=== PATIENT | female | born 1955 | race Caucasian/White ===

== ENCOUNTER → 2018-03-26 08:09 | Outpatient (REF) | payer OTHER, SELFPAY ==
[2018-03-26 13:06] LABS: HGB 14.5 g/dL (12.0-15.5); Mean Corpuscular Hemoglobin 30.3 pg (27.0-33.0); Mean Corpuscular Volume 92.1 fL (80-95); Mean Platelet Volume 12.3 fL (8.0-11.0); Platelet Count 215 x1000/uL (130-400); RBC 4.78 m/cumm (4.00-5.20); RBC Distribution Width 14.3 % (11.7-14.6); White Blood Cell Count 9.57 k/cumm (4.4-10.8)
[2018-03-26 13:20] LABS: ALT 54 U/L (12-78); AST 21 U/L (15-37); Albumin 4.3 g/dL (3.4-5.0); Alkaline Phosphatase 105 U/L (46-116); Anion Gap 10.7 mmol/L (3-11); BUN 14 mg/dL (7-18); Bilirubin, Total 0.6 mg/dL (0.2-1.0); CO2 27.3 mmol/L (21.0-32.0); CREATININE 0.89 mg/dL (0.55-1.02); Calcium 9.2 mg/dL (8.5-10.1); Chloride 103 mmol/L (98-107); Cholesterol 149 mg/dL (50-200); Glucose 198 mg/dL (70-100); HDL Cholesterol 35 mg/dL (40-60); LDL CHOLESTEROL 88 mg/dL (<100); Potassium 3.9 mmol/L (3.5-5.1); Sodium 141 mmol/L (136-145); Total Protein 7.4 g/dL (6.4-8.2); Triglyceride 225 mg/dL (30-150)
== END ==
LOC: NCHCN 08:09
PROVIDERS: Visit Provider Family Medicine
DX: Z00.00 Encounter for general adult medical examination without abnormal findings (principal); Z13.0 Encounter for screening for diseases of the blood and blood-forming organs and certain disorders involving the immune mechanism; Z13.228 Encounter for screening for other metabolic disorders; Z13.220 Encounter for screening for lipoid disorders
CPT/HCPCS: 80053; 80061; 83721; 85027

== ENCOUNTER 2018-05-11 00:23 | Outpatient (CLI) | payer OTHER, SELFPAY ==
--- NOTE | 2018-05-11 14:25 | DI.RAD_ITS ---
SYMPTOMS/DIAGNOSIS: SCREENING FOR OSTEOPOROSIS IN A POSTMENOPAUSAL WOMAN, Z78.0 , [facility], Z00.00 DEXA SCAN: The scanogram of the dorsal lumbar spine is unremarkable. For the left forearm, a T score of -1.2 and a Z score of 0.4 indicate osteopenia and an increased fracture risk. For the left hip, a T score of -0.8 and a Z score of 0.5 are consistent with osteopenia and an increased fracture risk. For the lumbar spine, a T score of 1.8 and a Z score of 0 are consistent with osteopenia and an increased fracture risk.
== END 2018-05-11 00:43 ==
PROVIDERS: PCP Family Medicine; Visit Provider Family Medicine
DX: Z78.0 Asymptomatic menopausal state; M85.88 Other specified disorders of bone density and structure, other site
CPT/HCPCS: 77080

== ENCOUNTER 2018-07-07 11:52 | Outpatient (REF) | payer OTHER, SELFPAY ==
[2018-07-07 22:31] LABS: TSH (W/Ref FT4) 1.34 uIU/mL (0.358-3.74)
== END 2018-07-07 12:12 ==
LOC: NCHCN 11:52
PROVIDERS: PCP Family Medicine; Visit Provider Nurse Practitioner
DX: E03.9 Hypothyroidism, unspecified (principal)
CPT/HCPCS: 84443

== ENCOUNTER 2018-08-10 01:51 | Outpatient (CLI) | payer OTHER, SELFPAY ==
--- NOTE | 2018-08-10 12:44 | DI.US_ITS ---
SYMPTOM/DIAGNOSIS: VAGINAL BLEEDING, POST MENOPAUSAL, N95.0 PELVIC ULTRASOUND: A transabdominal and transvaginal examination was carried out. The uterus is acoustically heterogeneous and the endometrium is thickened and heterogeneous. The uterus measures 8.9 cm. in length, 5.5 cm. in height and 8.1 cm. in width with an endometrial stripe thickness of 14 mm. In addition to the above, there are right and left fundal fibroids. The right fibroid measures 5.8 by 5.8 by 5.1 cm. The left fibroid measures 3.3 by 3.6 by 3.8 cm. Also the possibility of hydrosalpinx is raised on the left side. There is also non visualization of the left ovary. The right kidney measures 11.4 cm. The left kidney measures 10.4 cm. There is a left renal simple cyst measuring 4.3 by 3.4 by 4.2 cm. in the lateral mid portion of the left kidney. SUMMARY: Multiple fibroids are demonstrated. There is thickening and heterogeneity of endometrium and further evaluation of this patient with hysteroscopy is suggested.
== END 2018-08-10 02:11 ==
PROVIDERS: PCP Family Medicine; Visit Provider Nurse Practitioner Family
DX: N95.0 Postmenopausal bleeding (principal); D25.9 Leiomyoma of uterus, unspecified; R93.89 Abnormal findings on diagnostic imaging of other specified body structures
CPT/HCPCS: 76830; 76856

== ENCOUNTER 2018-08-20 09:59 | Outpatient (REF) | payer OTHER, SELFPAY ==
--- NOTE | 2018-08-20 09:20 | ENDOMET_PTH ---
PATIENT: Tonia Magallanes LOC: [facility] U#:[id number] AGE/SX: 63/F ROOM: RE08/20/[address]: Vishnu Sorensen MD : 1955 BED: DIS: 08/20/2018 SPEC #: [id number] RECD: 08/20/18 12:59 STATUS: MIGUELANGEL REQ #: [id number] DEBORAH: 08/20/18 09:[address]: Vishnu Sorensen DEPT: Surgical Specimen RECD BY: Flora Diallo ENTERED: 08/20/18 12:59 SP TYPE: Endomet OT DR: Josefina Nguyễn, DEBORAH Tissues: 1 - ENDOMETRIUM BX/COBYETTE Procedures: GROSS AND MICRO LEVEL 4 Comments: [id number]
== END 2018-08-20 10:19 ==
LOC: LBN 09:59
PROVIDERS: PCP Family Medicine; Visit Provider Obstetrics & Gynecology
DX: N93.8 Other specified abnormal uterine and vaginal bleeding (principal); N95.0 Postmenopausal bleeding; N85.8 Other specified noninflammatory disorders of uterus
CPT/HCPCS: 88305

== ENCOUNTER 2018-08-23 01:02 | Outpatient (CLI) | payer OTHER, SELFPAY ==
--- NOTE | 2018-08-23 08:23 | DI.MAMMO_ITS ---
SYMPTOM/DIAGNOSIS: SCREENING, Z12.31 MAMMOGRAMS: Mammograms were interpreted according to the usual protocol including computer analysis with CAD system, tomosynthesis and C view imaging. Comparison is made with exams from 4303-1165. The breasts are composed of heterogeneously dense fibroglandular tissue, breast density, Category C. There are multiple bilateral nodules and benign calcifications. No suspicious masses or suspicious microcalcifications are seen. There has been no significant change. IMPRESSION: Category 2C, negative mammogram with benign findings. Yearly screening mammography is recommended. MQSA ASSESSMENT OF FINDINGS: Negative with benign findings. Category 2. Patient will receive a letter notifying them of these results. Bi-RADS category C. The breasts are heterogeneously dense, which may obscure small masses.
== END 2018-08-23 01:22 ==
PROVIDERS: PCP Family Medicine; Visit Provider Nurse Practitioner Family
DX: Z12.31 Encounter for screening mammogram for malignant neoplasm of breast (principal)
CPT/HCPCS: 77063; 77067

== ENCOUNTER → 2018-09-06 09:20 | Outpatient (BNVA) | payer OTHER, SELFPAY | PROVIDERS: PCP Family Medicine; Referring Provider Family Medicine; Visit Provider Physical Therapy Assistant | DX: Z12.11 Encounter for screening for malignant neoplasm of colon (principal); Z86.010 Personal history of colon polyps; E11.9 Type 2 diabetes mellitus without complications; Z79.84 Long term (current) use of oral hypoglycemic drugs; I10 Essential (primary) hypertension ==

== ENCOUNTER 2018-09-21 10:11 | Outpatient (CLI) | payer OTHER, SELFPAY ==
[2018-09-21 11:09] LABS: HCT 45.3 % (36.0-46.0); Mean Corp. HGB Concentration 33.1 g/dL (32.0-36.0); Mean Corpuscular Hemoglobin 29.8 pg (27.0-33.0); Mean Corpuscular Volume 90.1 fL (80-95); Mean Platelet Volume 11.8 fL (8.0-11.0); Platelet Count 223 x1000/uL (130-400); RBC 5.03 m/cumm (4.00-5.20); RBC Distribution Width 15.1 % (11.7-14.6); White Blood Cell Count 10.24 k/cumm (4.4-10.8)
== END 2018-09-21 10:31 ==
PROVIDERS: PCP Family Medicine; Visit Provider Obstetrics & Gynecology
DX: N95.0 Postmenopausal bleeding (principal); Z01.818 Encounter for other preprocedural examination
CPT/HCPCS: 36415; 85027; 86850; 86900; 86901

== ENCOUNTER 2018-09-22 09:23 | Day surgery (SDC) | payer OTHER, SELFPAY ==
[2018-09-22] MEDS: Lactated Ringers 1,000 ML 125 ML IV (10:05)
--- NOTE | 2018-09-22 10:54 | ENDOMET_PTH ---
PATIENT: Tonia Magallanes LOC: [facility] U#:[id number] AGE/SX: 63/F ROOM: RE09/22/[address]: Vishnu Sorensen MD : 1955 BED: DIS: 09/22/2018 SPEC #: [id number] RECD: 09/22/18 12:58 STATUS: MIGUELANGEL REQ #: [id number] DEBORAH: 09/22/18 10:[address]: Vishnu Sorensen DEPT: Surgical Specimen RECD BY: Flora Diallo ENTERED: 09/22/18 12:59 SP TYPE: Endomet OTHR DR: Josefina Nguyễn Tissues: 1 - ENDOMETRIUM BX/CURRETTE 2 - ENDOMETRIUM BX/CURRETTE Procedures: GROSS AND MICRO LEVEL 4 Comments: [id number]
[2018-09-22 11:08] VITALS: BP 134/74; PULSE 79; RESP 15; TEMP 36.2; O2SAT 95
[2018-09-22 11:13] VITALS: BP 113/61; PULSE 84; RESP 19; TEMP 36.2; O2SAT 94
[2018-09-22 11:18] VITALS: BP 122/61; PULSE 77; RESP 13; TEMP 36.2; O2SAT 94
[2018-09-22 11:55] VITALS: BP 134/68; PULSE 86; RESP 16; TEMP 35.7; O2SAT 93
--- NOTE | 2018-09-22 12:10 | W.PM.DSUDISC ---
Discharge Plan Disposition Patient Disposition: HOME Condition: Good Discharge Details Reason For Visit: Postmenopausal bleeding Attending Provider: Vishnu Sorensen Primary Care Provider: Josefina Nguyễn Home Meds and New Rx's Prescriptions: New hydrocodone-acetaminophen [[place]] 7.5-325 mg tablet 1 tab PO Q6H Qty: 10 RF: 0 Continued Januvia 100 mg tablet 100 mg PO DAILY RF: 0 bisacodyl [Dulcolax (bisacodyl)] 5 mg tablet,delayed release (DR/EC) 5 mg PO ONCE Qty: 4 RF: 0 polyethylene glycol 3350 17 gram/dose powder 255 g PO ONCE Qty: 255 RF: 0 multivitamin [Daily Multi-Vitamin] 1 EACH tablet 1 ea PO DAILY RF: 0 metformin 500 MG tablet 1,000 mg PO BID RF: 0 lisinopril 20 MG tablet 20 mg PO DAILY RF: 0 chlorthalidone 25 MG tablet 25 mg PO DAILY RF: 0 levothyroxine 50 MCG tablet 50 mcg PO DAILY RF: 0 glimepiride 1 MG tablet 2 mg PO DAILY RF: 0 atorvastatin 40 MG tablet 40 mg PO DAILY RF: 0 Discharge Instructions Stand Alone Forms: [facility] Post Gynecology Surgery, Ernesto Olea (DSU) Activity:: Activity as Tolerated Diet:: As Tolerated DS: Diagnosis Discharge Diagnosis (1) Postmenopausal: Status: Acute
--- NOTE | 2018-09-22 14:54 | W.PM.OP ---
Date of service: 09/22/18 Time of Service: 14:54 Operative Note DATE OF PROCEDURE: 09/22/18 PRE-OP DIAGNOSIS: Post menopausal bleeding with thickened EM on ultrasound POST-OP DIAGNOSIS: same PROCEDURE: Hysteroscopy D&C SURGEON: Vishnu Sorensen ANESTHESIA: MAC ESTIMATED BLOOD LOSS: 0 PATHOLOGY: other (1. Endometrial polyps. 2. Endometrial curettings ) COMPLICATIONS: None Patient was transported to: PACU Patient's condition: stable Findings: 1. On hysteroscopic exam 5 - 6 polyps were noted within the endometrial cavity. The surrounding endometrium was atrophic in appearance. 2. G2 cystocele, G2-3 rectocele. Procedure Description: After adequate general anesthesia was obtained, the patient was placed in lithotomy position. The patient was prepped and draped in the usual sterile fashion. The bladder was straight cathed for approximately 10 cc of clear urine. A weighted speculum was placed in the vagina with good visualization of the cervix. The cervix was grasped on the anterior lip with a single toothed tenaculum. The 5mm 30 degree hysteroscope with NS distention media was passed through the cervix without need for dilatation. 5-6 polyps were noted throughout the endometrial cavity with the background endometrium appearing atrophic. The hysteroscope was removed and the endometrial cavity explored with polyp forceps. All polyps were able to be removed with the forceps. A second pass with the hysteroscope cofirmed this. A sharp curettage was performed and submitted as a separate specimen. All instrumentation was removed. No bleeding was noted at the tenaculum site. Instrument and sponge counts were correct at the conclusion of the procedure. The patient was extubated and transferred to PACU in stable condition.
== END 2018-09-22 12:08 | disposition home or self-care (01) ==
PROVIDERS: PCP Family Medicine; Visit Provider Obstetrics & Gynecology
PROC: 0UDB8ZZ Extraction of Endometrium, Via Natural or Artificial Opening Endoscopic (ICD-10-PCS; CPT 58558; principal; 2018-09-22 10:30)
DX: N95.0 Postmenopausal bleeding (principal); R93.89 Abnormal findings on diagnostic imaging of other specified body structures; N81.10 Cystocele, unspecified; N81.6 Rectocele; N84.0 Polyp of corpus uteri; N84.1 Polyp of cervix uteri; E11.9 Type 2 diabetes mellitus without complications; I10 Essential (primary) hypertension; F17.210 Nicotine dependence, cigarettes, uncomplicated
CPT/HCPCS: 58558; 88305; J1100; J2250; J2405; J3010

== ENCOUNTER 2018-09-27 08:58 | Day surgery (SDC) | payer OTHER, SELFPAY ==
--- NOTE | 2018-09-27 06:33 | W.COLOREPORT ---
Date of service: 09/27/18 Time of Service: 10:09 Colonoscopy Report Date of procedure: 09/27/18 Pre-op diagnosis general: Hx of polyps Post-op diagnosis procedure note: other (Diverticulosis/ multiple polyps) Procedure: Colonoscopy with polypectomy by cold forceps Surgeon: Lenore Springer Anesthesia proc note operative: MAC (David Gordon,ROSHAN/ ASA 2) Estimated blood loss (mL): 5 Pathology: other (Transverse colon polyp, sigmoid polyps, rectal polyps) Complications: None Disposition: same day Indications: Mrs. Magallanes is a pleasant 63 year old female who was seen in the office for a follow-up colonoscopy. She had a colonoscopy in 2016 where she was found to have 4 pre-malignant polyps. She had another colonoscopy in 2017 where she had 5 pre-malignant polyps removed. She is now back for another colonoscopy. Risks, benefits and complications have been reviewed. Complications include but are not limited to bleeding, pain, perforation, missed small lesion/polyp, sore throat, aspiration and adverse reaction to the medications. Questions were entertained and answered to their satisfaction and they wished to proceed. No guarantees were given or implied. Prep: Miralax/Dulcolax Procedure Start Time: 10:09 Procedure End Time: 11:15 Retraction Time: 28 minutes Findings: 1. Transverse colon polyp 2. Sigmoid polyps x 6 3. rectal polyps x6 4. mild sigmoid diverticulosis Procedure Description: After informed consent was obtained the patient was taken to the procedure room and placed in a left decubitous position. Monitors were applied and a time out was done. The patients name, date of , procedure, allergies to medications and metal in their body was reviewed. The patient was then sedated. Once sedated and comfortable a rectal exam was done. External exam was normal. Internal exam revealed a normal sphincter tone and no palpable masses. The scope was then introduced and retro-flexed. No internal hemorrhoids were identified. The scope was then advanced to the cecum with difficulty. The scope would not advance easily past the hepatic flexure. She was placed in a supine position which helped to get it to the ascending colon. A lot of pressure had to be applied to get the scope into the cecum. The TI and appendiceal orifice were identified. The prep was adequate. The scope was then slowly retracted over 28 minutes back into the rectum. Polyps were removed in the transverse colon, sigmoid colon (x6), and rectum (X6) with cold forceps. Most were sessile polyps. Mild diverticulosis was also noted in the sigmoid colon. The scope was removed and the patient was woken up and taken back to Same day surgery in stable condition. The patient tolerated the procedure well and there were no immediate complications. Follow up: The patient should follow up in 1-2 years unless they develop changes in bowel habits or other new gastrointestinal complaints.
--- NOTE | 2018-09-27 06:35 | PDOC.DSDIS_ITS ---
Discharge Plan Disposition Patient Disposition: HOME Condition: Good Discharge Details Reason For Visit: Hx of polyps Attending Provider: Lenore Springer Primary Care Provider: Josefina Nguyễn Home Meds and New Rx's Prescriptions: Continued Januvia 100 mg tablet 100 mg PO DAILY RF: 0 multivitamin [Daily Multi-Vitamin] 1 EACH tablet 1 ea PO DAILY RF: 0 metformin 500 MG tablet 1,000 mg PO BID RF: 0 lisinopril 20 MG tablet 20 mg PO DAILY RF: 0 chlorthalidone 25 MG tablet 25 mg PO DAILY RF: 0 levothyroxine 50 MCG tablet 50 mcg PO DAILY RF: 0 glimepiride 1 MG tablet 2 mg PO DAILY RF: 0 atorvastatin 40 MG tablet 40 mg PO DAILY RF: 0 hydrocodone-acetaminophen [[place]] 7.5-325 mg tablet 1 tab PO Q6H Qty: 10 RF: 0 Discontinued bisacodyl [Dulcolax (bisacodyl)] 5 mg tablet,delayed release (DR/EC) 5 mg PO ONCE Qty: 4 RF: 0 polyethylene glycol 3350 17 gram/dose powder 255 g PO ONCE Qty: 255 RF: 0 Discharge Instructions Instructions: Colonoscopy (DC), Diverticulosis (DC), Colorectal Polyps (DC) Additional Instructions: Findings: multiple polyps, mild diverticulosis Follow up:depends on final pathology Please call if you develop: fevers >101.5 Nausea or Vomiting Abdominal pain that is not transient DAY SURGERY UNIT POST COLONOSCOPY INSTRUCTIONS 1. Because there will be medication in your system for the next 24 hours, you may feel a little sleepy. Your coordination will be affected. Therefore: a. Do not drive or operate dangerous equipment for 24 hours. b. Do not drink alcohol beverages for 24 hours (not even beer). c. Plan to go home and rest for the day. 2. Generally there are no restrictions on your activity after a day or so has gone by, but you may feel a bit fatigued for a few days. 3 After you arrive home you may have a light meal and return to a normal diet as you can tolerate it without feeling sick to your stomach. 4. After surgery, you may feel pain or discomfort. This should be only transient, but if it persists please contact your doctor. 5. If there are any questions regarding the findings of your procedure, please feel free to contact your doctor. 6. If you are unable to contact your doctor with a problem, contact the hospital at [phone]. 3. Continue all your regular medications unless directed otherwise. I understand the above instructions and have no questions. Signature of Patient or Responsible Adult Escort Date/Time Name of Responsible Adult Escort Signature of Nurse Date/Time Activity:: Activity as Tolerated Diet:: high fiber diet Discharge Orders Discharge Orders: Discharge Order (Routine); Ordered 09/27/18 Ordered By: Lenore Springer DS: Diagnosis Discharge Diagnosis (1) Colonoscopy - MAC: Status: None (2) Colorectal polyps: Status: Acute
[2018-09-27 09:24] VITALS: BP 143/82; PULSE 101; RESP 16; TEMP 36.4; O2SAT 97
[2018-09-27] MEDS: Lactated Ringers 1,000 ML 80 ML IV (09:43)
--- NOTE | 2018-09-27 10:12 | BOWEL_PTH ---
PATIENT: Tonia Magallanes LOC: [facility] U#:[id number] AGE/SX: 63/F ROOM: RE09/27/[address]: Lenore Springer MD : 1955 BED: DIS: 09/27/2018 SPEC #: [id number] RECD: 09/27/18 12:54 STATUS: MIGUELANGEL REQ #: [id number] DEBORAH: 09/27/18 10:[address]: Lenore Springer DEPT: Surgical Specimen RECD BY: Flora Diallo ENTERED: 09/27/18 12:56 SP TYPE: Bowel OTHR DR: Josefina Nguyễn Tissues: 1 - BIOPSY BOWEL 2 - BIOPSY BOWEL 3 - BIOPSY BOWEL Procedures: GROSS AND MICRO LEVEL 4 Comments: [id number]
[2018-09-27 12:00] VITALS: BP 110/40; PULSE 81; RESP 18; TEMP 35.5; O2SAT 94
[2018-09-27 12:06] VITALS: BP 129/57; O2SAT 96
== END 2018-09-27 12:27 | disposition home or self-care (01) ==
LOC: SUR 09:00
PROVIDERS: PCP Family Medicine; Visit Provider Surgery
PROC: 0DJD8ZZ Inspection of Lower Intestinal Tract, Via Natural or Artificial Opening Endoscopic (ICD-10-PCS; CPT 45378; principal; 2018-09-27 10:30)
DX: Z12.11 Encounter for screening for malignant neoplasm of colon (principal); D12.8 Benign neoplasm of rectum; D12.3 Benign neoplasm of transverse colon; D12.5 Benign neoplasm of sigmoid colon; K57.30 Diverticulosis of large intestine without perforation or abscess without bleeding; Z86.010 Personal history of colon polyps; I10 Essential (primary) hypertension; E11.9 Type 2 diabetes mellitus without complications; Z79.84 Long term (current) use of oral hypoglycemic drugs; F17.210 Nicotine dependence, cigarettes, uncomplicated
CPT/HCPCS: 45380; 88305

== ENCOUNTER 2019-09-22 01:18 | Outpatient (CLI) | payer OTHER, SELFPAY ==
--- NOTE | 2019-09-22 11:42 | DI.MAMMO_ITS ---
EXAM: MG MAMMO SCREENING CLINICAL HISTORY: Screening, Z12.39 TECHNIQUE: Mammograms were interpreted according to the usual protocol including computer analysis w PAAY CAD system, tomosynthesis and C-view imaging. COMPARISON: July 2018 FINDINGS: The breasts are heterogeneously dense. There are multiple well-circumscribed nodules of the breasts, unchanged in appearance in comparison with previous examinations including July 2018. No new ma ss or clumped microcalcification seen. IMPRESSION: No specific evidence of malignancy at this time. Follow-up mammogram suggested in 12 months to re-ev aluate stable presumably benign bilateral breast masses. Category 2, breast density category C. BI-RADS Cat 2 - Benign Findings Breast Density - Category C - Heterogeneously dense
== END 2019-09-22 01:38 ==
PROVIDERS: PCP Family Medicine; Visit Provider Nurse Practitioner Family
DX: Z12.31 Encounter for screening mammogram for malignant neoplasm of breast (principal)
CPT/HCPCS: 77063; 77067

== ENCOUNTER 2020-01-04 08:38 | Outpatient (REF) | payer OTHER, SELFPAY ==
[2020-01-04 21:26] LABS: ALT 53 U/L (14-59); AST 23 U/L (15-37); Albumin 4.3 g/dL (3.4-5.0); Alkaline Phosphatase 105 U/L (46-116); Anion Gap 9.7 mmol/L (3-11); BUN 18 mg/dL (7-18); Bilirubin, Total 0.4 mg/dL (0.2-1.0); CO2 29.3 mmol/L (21.0-32.0); CREATININE 1.02 mg/dL (0.55-1.02); Calcium 9.6 mg/dL (8.5-10.1); Calculated LDL 79 mg/dL (<100); Chloride 103 mmol/L (98-107); Cholesterol 146 mg/dL (<200); Estimated GFR 54.22 (mL/min/1.73m2); Glucose 147 mg/dL (74-106); HDL Cholesterol 38 mg/dL (40-60); Potassium 4.1 mmol/L (3.5-5.1); Sodium 142 mmol/L (136-145); TSH 1.58 uIU/mL (0.36-3.74); Total Protein 7.3 g/dL (6.4-8.2); Triglyceride 148 mg/dL (<150)
== END 2020-01-04 08:58 ==
LOC: NCHCN 08:38
PROVIDERS: PCP Family Medicine; Visit Provider Family Medicine
DX: E11.9 Type 2 diabetes mellitus without complications (principal); E78.5 Hyperlipidemia, unspecified; E03.9 Hypothyroidism, unspecified
CPT/HCPCS: 80053; 80061; 84443

== ENCOUNTER → 2020-01-13 13:47 | Outpatient (BNVA) | payer OTHER, SELFPAY | PROVIDERS: PCP Family Medicine; Referring Provider Family Medicine; Visit Provider Surgery | DX: Z12.11 Encounter for screening for malignant neoplasm of colon (principal); Z86.010 Personal history of colon polyps ==

== ENCOUNTER 2020-01-20 08:03 | Outpatient (CLI) | payer OTHER, SELFPAY ==
[2020-01-21 12:18] LABS: COVID-19 RT-PCR UVMMC Result Negative (Negative)
== END 2020-01-20 08:23 ==
PROVIDERS: PCP Family Medicine; Visit Provider Surgery
DX: Z11.59 Encounter for screening for other viral diseases (principal)
CPT/HCPCS: U0003

== ENCOUNTER 2020-01-23 09:13 | Day surgery (SDC) | payer OTHER, SELFPAY ==
--- NOTE | 2020-01-23 06:41 | COLE_ITS ---
Date of service: 01/23/20 Time of Service: 11:29 Colonoscopy Report Date of procedure: 01/23/20 Pre-op diagnosis general: Hx of adenomatous colon polyps Post-op diagnosis procedure note: other (Multiple adenomatous polyps and a vascular lesion, diverticulosis) Procedure: Colonoscopy with polypectomy Surgeon: Lenore Springer Anesthesia proc note operative: other (General/ ASA 2/ Mone Her, ROSHAN) Estimated blood loss (mL): 5 Pathology: other (ascending lesion bx, ascending polyp, Transvers polyp, descen ding polyp x2, sigmoid polyp, rectal polyp x3) Complications: None Disposition: same day Indications: 64 YEAR OLD FEMALE WITH HISTORY OF MULTIPLE PRE-CANCEROUS POLYPS 1 YEAR AGO. Risks, benefits and complications have been reviewed. Complications include but are not limited to bleeding, pain, perforation, missed small lesion/polyp, sore throat, aspiration and adverse reaction to the medications. Questions were entertained and answered to their satisfaction and they wished to proceed. No guarantees were given or implied. Prep: Miralax/Dulcolax Procedure Start Time: 10:00 Procedure End Time: 11:18 Retraction Time: 38 minutes Findings: Multiple adenomatous polyps and one vascular lesion Diverticulosis Unable to enter the cecum Procedure Description: After informed consent was obtained the patient was taken to the procedure room and placed in a left decubitous position. Monitors were applied and a time out was done. The patients name, date of , procedure, allergies to medications and metal in their body was reviewed. The patient was then sedated. Once sedated and comfortable a rectal exam was done. External exam was normal. Internal exam revealed a normal sphincter tone and no palpable masses. The scope was then introduced and retro-flexed. No internal hemorrhoids were identified. There were 3 small rectal polyps noted on retro-flexion. The scope was then advanced to the cecum with difficulty. Her colon was tortuous and she had moderate sigmoid diverticulosis. The ileocecal valve was identified. The scope could not be advanced into the cecum. We changed the patients position and applied pressure to her abdomen without luck. The prep was adequate. There was a vascular lesion noted in the ascending colon that was flat with the mucosa. There was no ulceration. A biopsy was done and the area was cauterized. The scope was then slowly retracted over 38 minutes back into the rectum. Polyps were removed with hot snare in the ascending colon. Polyps were removed with cold forceps in the Transverse colon, descending colon x2, sigmoid colon and rectum x3. The scope was removed and the patient was woken up and taken back to Same day surgery in stable condition. The patient tolerated the procedure well and there were no immediate complications. Follow up: The patient should follow up in 1 year unless they develop changes in bowel habits or other new gastrointestinal complaints.
--- NOTE | 2020-01-23 06:42 | W.PM.DSUDISC ---
Discharge Plan Disposition Patient Disposition: HOME Condition: Good Discharge Details Reason For Visit: Hx of adenomatous colon polyps Attending Provider: Lenore Springer Primary Care Provider: Josefina Nguyễn Home Meds and New Rx's Prescriptions: Continued Januvia 100 mg tablet 100 mg PO DAILY RF: 0 multivitamin [Daily Multi-Vitamin] 1 EACH tablet 1 ea PO DAILY RF: 0 metformin 500 MG tablet 1,000 mg PO BID RF: 0 lisinopril 20 MG tablet 20 mg PO DAILY RF: 0 chlorthalidone 25 MG tablet 25 mg PO DAILY RF: 0 levothyroxine 50 MCG tablet 50 mcg PO DAILY RF: 0 glimepiride 1 MG tablet 2 mg PO DAILY RF: 0 albuterol sulfate [ProAir HFA] 90 mcg/actuation HFA aerosol inhaler 2 puff IH Q6H PRNRF: 0 atorvastatin 40 MG tablet 40 mg PO DAILY RF: 0 Caltrate + D3 Plus Minerals 300 mg-800 unit -25 mg-0.5 mg Tablet 1 tab PO DAILY RF: 0 Discontinued polyethylene glycol 3350 17 gram/dose powder 238 g PO ONCE Qty: 238 RF: 0 bisacodyl [Dulcolax (bisacodyl)] 5 mg tablet,delayed release (DR/EC) 5 mg PO ONCE Qty: 4 RF: 0 Discharge Instructions Instructions: Colorectal Polyps (DC), Diverticulosis (DC) Additional Instructions: Findings: 8 polyps Follow up: depends on final pathology Please call if you develop: fevers >101.5 Nausea or Vomiting Abdominal pain that is not transient DAY SURGERY UNIT POST ENDOSCOPY INSTRUCTIONS 1. Because there will be medication in your system for the next 24 hours, you may feel a little sleepy. Your coordination will be affected. Therefore: a. Do not drive or operate dangerous equipment for 24 hours. b. Do not drink alcohol beverages for 24 hours (not even beer). c. Plan to go home and rest for the day. 2. Generally there are no restrictions on your activity after a day or so has gone by, but you may feel a bit fatigued for a few days. 3 After you arrive home you may have a light meal and return to a normal diet as you can tolerate it without feeling sick to your stomach. 4. After surgery, you may feel pain or discomfort. This should be only transient, but if it persists please contact your doctor. 5. If there are any questions regarding the findings of your procedure, please feel free to contact your doctor. 6. If you are unable to contact your doctor with a problem, contact the hospital at [phone]. 7. Continue all your regular medications unless directed otherwise. I understand the above instructions and have no questions. Signature of Patient or Responsible Adult Escort Date/Time Name of Responsible Adult Escort Signature of Nurse Date/Time Activity:: Activity as Tolerated Diet:: high Fiber diet Discharge Orders Discharge Orders: Discharge Order (Routine); Ordered 01/23/20 Ordered By: Lenore Springer DS: Diagnosis Discharge Diagnosis (1) Colorectal polyps: Status: Acute (2) Diverticulosis: Status: Acute
[2020-01-23 09:33] VITALS: BP 149/73; PULSE 88; RESP 18; TEMP 36.3; O2SAT 97
[2020-01-23] MEDS: Lactated Ringers 1,000 ML 80 ML IV (09:50)
--- NOTE | 2020-01-23 10:30 | BOWEL_PTH ---
PATIENT: Tonia Magallanes LOC: [facility] U#:[id number] AGE/SX: 64/F ROOM: RE01/23/[address]: Lenore Springer MD : 1955 BED: DIS: 01/23/2020 SPEC #: [id number] RECD: 01/23/20 14:34 STATUS: MIGUELANGEL REPascale #: [id number] DEBORAH: 01/23/20 10:[address]: Lenore Springer DEPT: Surgical Specimen RECD BY: Flora Diallo ENTERED: 01/23/20 14:41 SP TYPE: Bowel OTHR DR: Josefina Nguyễn Tissues: 1 - BIOPSY BOWEL 2 - BIOPSY BOWEL 3 - BIOPSY BOWEL 4 - BIOPSY BOWEL 5 - BIOPSY BOWEL 6 - BIOPSY BOWEL Procedures: GROSS AND MICRO LEVEL 4 Comments: [id number]
[2020-01-23 12:04] VITALS: BP 119/65; PULSE 74; RESP 18; TEMP 36.2; O2SAT 97
== END 2020-01-23 12:35 | disposition home or self-care (01) ==
LOC: SUR 09:14
PROVIDERS: PCP Family Medicine; Visit Provider Surgery
PROC: 0DJD8ZZ Inspection of Lower Intestinal Tract, Via Natural or Artificial Opening Endoscopic (ICD-10-PCS; CPT 45378; principal; 2020-01-23 09:15)
DX: Z12.11 Encounter for screening for malignant neoplasm of colon (principal); Z86.010 Personal history of colon polyps; K63.5 Polyp of colon; K62.1 Rectal polyp; K63.89 Other specified diseases of intestine
CPT/HCPCS: 45385; 45380; 88305; J2001

== ENCOUNTER 2020-09-26 01:58 | Outpatient (CLI) | payer OTHER, SELFPAY ==
--- NOTE | 2020-09-26 08:00 | DI.MAMMO_ITS ---
EXAM: MG MAMMO SCREENING CLINICAL HISTORY: screening TECHNIQUE: Bilateral full field digital CC and MLO mammographic images were obtained with 3D tomosyn thesis and utilizing computer aided detection (CAD). COMPARISON: Available for comparison. FINDINGS: Masses/Architectural Distortion: There are stable bilateral well-circumscribed nodules present. No s uspicious nodules or areas of architectural distortion are appreciated. Microcalcifications: No suspicious pleomorphic-type are seen. Skin Thickening/Nipple Retraction: None. IMPRESSION: 1. No significant interval change with no specific features of malignancy noted. 2. Unless there is more urgent need, screening mammography is recommended, as per [employer] guidelines. BI-RADS Category 2 - Benign Findings Breast Density - Category C - Heterogeneously dense Breast density category C or D implies that the patient has dense breast tissue. Dense breast tissue is very common and is not abnormal but dense breast tissue can make it harder to find cancer on a ma mmogram. Also, dense breast tissue may increase their breast cancer risk. This information about the result of the mammogram report was provided to the patient to raise their awareness. Use this report when you speak with the patient about their risks for breast cancer, which includes their family hist ory. At that time, you may recommend for more screening tests (Ultrasound or MRI) as they might be us eful based on their risk. A negative radiographic report should not delay biopsy if a dominant or clinically suspicious mass is present. Up to ten percent of cancers are not identified on mammography. A negative report may reinforce clinical impression. Adenosis and dense breasts may obscure an underlying neoplasm. False positive reports average 6 to 10%. Patient will receive a letter notifying them of these results.
== END 2020-09-26 01:59 | disposition home or self-care (01) ==
LOC: DI 01:59
PROVIDERS: PCP Family Medicine; Visit Provider Nurse Practitioner Family
DX: Z12.31 Encounter for screening mammogram for malignant neoplasm of breast (principal)
CPT/HCPCS: 77063; 77067

== ENCOUNTER 2021-07-08 15:04 | Outpatient (REF) | payer MEDICARE, SELFPAY ==
[2021-07-10 12:53] LABS: COVID-19 RT-PCR UVMMC Result Negative (Negative)
== END 2021-07-08 15:05 | disposition home or self-care (01) ==
LOC: NCHCN 15:04
PROVIDERS: PCP Family Medicine; Visit Provider Family Medicine
DX: Z20.822 Contact with and (suspected) exposure to COVID-19 (principal)
CPT/HCPCS: U0003

== ENCOUNTER 2021-10-29 01:05 | Outpatient (CLI) | payer MEDICARE, SELFPAY ==
--- NOTE | 2021-10-29 11:53 | DI.MAMMO_ITS ---
Exam(s) MAMMO SCREENING EXAM: MAMMO SCREENING CLINICAL HISTORY: screening. TECHNIQUE: Bilateral full field digital CC and MLO mammographic images were obtained with 3D tomosyn thesis and utilizing computer aided detection (CAD). COMPARISON: Prior mammograms dating back to 2011 were reviewed, the most recent being September 2020. FINDINGS: The fibroglandular tissue pattern of the breasts is again noted be moderately dense. There is continued stability of the multiple bilateral nodules, previously described. There are no new spiculated masses. There are multiple benign-appearing micro and macrocalcifications in both breasts. However, left billy ast there is a microcalcification group which is more evident on prior studies, this located 6 cm in from the nipple on the MLO view 7 cm in from the nipple on the CC view. Mag views recommended. There is no significant architectural distortion nor skin thickening-retraction. IMPRESSION: 1. No radiographic evidence of malignancy in the right breast. 2. Left breast microcalcification group which requires 2D Mag views. BI-RADS Category 0 - Assessment Incomplete: Need additional imaging evaluation Breast Density - Category C - Heterogeneously dense Breast density Category C or D implies that the patient has dense breast tissue. Dense breast tissue can make it harder to find cancer on a mammogram. Dense breast tissue is also associated with an incr eased risk of breast cancer. This information about the result of the mammogram report was provided to the patient to raise their awareness. Use this report when you speak with the patient about their risks for breast cancer, which includes their family history. At that time, you may recommend additional screening tests (Ultrasoun d or MRI) as these tests may add significant information. A negative radiographic report should not delay biopsy if a dominant or clinically suspicious mass is present. Up to ten percent of cancers are not identified on mammography. A negative report may reinforce clinical impression. Adenosis and dense breasts may obscure an underlying neoplasm. False positive reports average 6 to 10%. Patient will receive a letter notifying them of these results.
== END 2021-10-29 01:25 ==
PROVIDERS: PCP Family Medicine; Visit Provider Nurse Practitioner Family
DX: Z12.31 Encounter for screening mammogram for malignant neoplasm of breast (principal); R92.8 Other abnormal and inconclusive findings on diagnostic imaging of breast
CPT/HCPCS: 77063; 77067

== ENCOUNTER 2021-11-06 01:30 | Outpatient (CLI) | payer MEDICARE, SELFPAY ==
--- NOTE | 2021-11-06 | DI.MAMMO_ITS ---
Exam(s) MAMMO SCREEN CALL BACK UNI EXAM: MAMMO SCREEN CALL BACK UNI CLINICAL HISTORY: MICROCALCIFICATIONS LEFT BREAST. TECHNIQUE: Unilateral 2D spot mammographic images obtained. COMPARISON: Prior mammograms were reviewed. This additional imaging was performed due to findings described on the recent screening mammogram of 10/29/2021. FINDINGS: Additional 2D Mag mammographic views performed todayrevealed a microcalcification group. Presently e xhibits benign appearance. Recommend six-month follow-up. IMPRESSION: Left breast microcalcification group present with benign appearance. Appropriate follow-up , as explained by myself the patient today, is repeat left breast mammogram in 6 months.. The patient was informed of these findings and recommendations prior to leaving the department today. BI-RADS Category 3 - 6 month - Probably Benign Finding: Recommend follow-up mammography in 6 months Breast Density - Category C - Heterogeneously dense Breast density Category C or D implies that the patient has dense breast tissue. Dense breast tissue can make it harder to find cancer on a mammogram. Dense breast tissue is also associated with an incr eased risk of breast cancer. This information about the result of the mammogram report was provided to the patient to raise their awareness. Use this report when you speak with the patient about their risks for breast cancer, which includes their family history. At that time, you may recommend additional screening tests (Ultrasoun d or MRI) as these tests may add significant information. A negative radiographic report should not delay biopsy if a dominant or clinically suspicious mass is present. Up to ten percent of cancers are not identified on mammography. A negative report may reinforce clinical impression. Adenosis and dense breasts may obscure an underlying neoplasm. False positive reports average 6 to 10%. Patient will receive a letter notifying them of these results.
== END 2021-11-06 01:50 ==
PROVIDERS: PCP Family Medicine; Visit Provider Nurse Practitioner Family
DX: Z12.31 Encounter for screening mammogram for malignant neoplasm of breast (principal); R92.8 Other abnormal and inconclusive findings on diagnostic imaging of breast
CPT/HCPCS: 77063; 77067

== ENCOUNTER → 2022-05-16 00:03 | Outpatient (CLI) | payer MEDICARE, SELFPAY ==
--- NOTE | 2022-05-16 08:00 | DI.MAMMO_ITS ---
Exam(s) MG MAMMO DIAGNOSTIC UNI EXAM: MG MAMMO DIAGNOSTIC UNI CLINICAL HISTORY: 6 month f/u left,r92.8 TECHNIQUE: Left cc and MLO mammogram images were performed according to the usual protocol [facility] computer analysis with CAD system, tomosynthesis and C-view imaging. COMPARISON: MG Screening Bilat Mammo from 07/31/2016 MG MG mammo screening from 08/23/2018 MG MG MAMMO SCREENING from 09/22/2019 MG MG MAMMO SCREENING from 09/26/2020 MG MG MAMMO SCREENING from 10/29/2021 MG MG MAMMO SCREEN CALL BACK UNI from 11/06/2021 FINDINGS: The left breast is composed of heterogeneously dense fibroglandular tissue, breast density category C. This is a six-month follow-up for a cluster of calcifications. These appears unchanged from the prio r exam and have a benign appearance. Stable areas nodularity. Stable scattered coarse calcification s. No suspicious masses or suspicious microcalcifications are seen. No skin thickening or abnormal axillary lymph nodes are seen. IMPRESSION: BI-RADS Cat 2 - Benign Findings Recommend return to bilateral screening in 6 months. Breast Density - Category B, scattered fibroglandular densities. A negative radiographic report should not delay biopsy if a dominant or clinically suspicious mass is present. Up to ten percent of cancers are not identified on mammography. A negative report may reinforce clinical impression. Adenosis and dense breasts may obscure an underlying neoplasm. False positive reports average 6 to 10%. Patient will receive a letter notifying them of these results.
== END ==
PROVIDERS: PCP Family Medicine; Visit Provider Nurse Practitioner Family
DX: R92.8 Other abnormal and inconclusive findings on diagnostic imaging of breast (principal)
CPT/HCPCS: 77061; 77065; G0279

== ENCOUNTER 2022-10-13 09:03 | Outpatient (REF) | payer MEDICARE, SELFPAY ==
[2022-10-13 15:32] LABS: Hemoglobin A1C 8.3 % (<5.7)
[2022-10-13 16:01] LABS: ALT 47 U/L (14-59); AST 22 U/L (15-37); Albumin 4.4 g/dL (3.4-5.0); Alkaline Phosphatase 103 U/L (46-116); Anion Gap 9.5 mmol/L (3-11); BUN 21 mg/dL (7-18); Bilirubin, Total 0.5 mg/dL (0.2-1.0); CO2 31.5 mmol/L (21.0-32.0); Calcium 10.8 mg/dL (8.5-10.1); Calculated LDL 104 mg/dL (<100); Chloride 103 mmol/L (98-107); Cholesterol 190 mg/dL (<200); Estimated GFR 60.98 (mL/min/1.73m2); Glucose 209 mg/dL (74-106); HDL Cholesterol 45 mg/dL (40-60); Potassium 4.9 mmol/L (3.5-5.1); Sodium 144 mmol/L (136-145); TSH 2.12 uIU/mL (0.36-3.74); Total Protein 7.3 g/dL (6.4-8.2); Triglyceride 208 mg/dL (<150)
[2022-10-13 16:12] LABS: Vitamin D 25 Total 82.8 ng/mL (30-100)
== END 2022-10-13 09:04 | disposition home or self-care (01) ==
LOC: NCHCN 09:03
PROVIDERS: PCP Family Medicine; Visit Provider Family Medicine
DX: E11.9 Type 2 diabetes mellitus without complications (principal); E78.5 Hyperlipidemia, unspecified; E03.9 Hypothyroidism, unspecified; E66.8 Other obesity; I10 Essential (primary) hypertension; E83.52 Hypercalcemia
CPT/HCPCS: 80053; 80061; 82306; 83036; 84443

== ENCOUNTER 2023-01-28 00:34 | Outpatient (CLI) | payer MEDICARE, SELFPAY ==
--- NOTE | 2023-01-28 | DI.MAMMO_ITS ---
Exam(s) MAMMO SCREENING EXAM: MAMMO SCREENING CLINICAL HISTORY: SCREENING, Z12.31 TECHNIQUE: Bilateral full field digital CC and MLO mammographic images were obtained with 3D tomosyn thesis and utilizing computer aided detection (CAD). COMPARISON: Available for comparison. FINDINGS: Masses/Architectural Distortion: There are bilateral breast nodules. No suspicious nodules are seen. No areas of architectural distortion are present. Microcalcifications: No suspicious pleomorphic-type are seen. There are diffuse bilateral calcificati ons which appears stable. Skin Thickening/Nipple Retraction: None. IMPRESSION: 1. No significant interval change with no specific features of malignancy noted. 2. Unless there is more urgent need, screening mammography is recommended, as per [employer] guidelines. BI-RADS Category 2 - Benign Findings Breast Density - Category C - Heterogeneously dense Breast density category C or D implies that the patient has dense breast tissue. Dense breast tissue is very common and is not abnormal but dense breast tissue can make it harder to find cancer on a ma mmogram. Also, dense breast tissue may increase their breast cancer risk. This information about the result of the mammogram report was provided to the patient to raise their awareness. Use this report when you speak with the patient about their risks for breast cancer, which includes their family hist ory. At that time, you may recommend for more screening tests (Ultrasound or MRI) as they might be us eful based on their risk. A negative radiographic report should not delay biopsy if a dominant or clinically suspicious mass is present. Up to ten percent of cancers are not identified on mammography. A negative report may reinforce clinical impression. Adenosis and dense breasts may obscure an underlying neoplasm. False positive reports average 6 to 10%. Patient will receive a letter notifying them of these results.
== END 2023-01-28 00:54 ==
LOC: DI 00:35
PROVIDERS: PCP Family Medicine; Visit Provider Family Medicine
DX: Z12.31 Encounter for screening mammogram for malignant neoplasm of breast (principal)
CPT/HCPCS: 77063; 77067

== ENCOUNTER → 2023-07-09 11:09 | Outpatient (BNVA) | payer MEDICARE, SELFPAY | PROVIDERS: PCP Family Medicine; Referring Provider Family Medicine; Visit Provider Physical Therapy Assistant | DX: Z12.11 Encounter for screening for malignant neoplasm of colon (principal); Z86.010 Personal history of colon polyps ==

== ENCOUNTER 2023-07-31 06:08 | Day surgery (SDC) | payer MEDICARE, SELFPAY ==
--- NOTE | 2023-07-30 12:19 | PDOC.DSDIS_ITS ---
Date of service: 07/31/23 Time of Service: 08:45 Discharge Plan Disposition Patient Disposition: Home Condition: Good Discharge Details Reason For Visit: colon scope Attending Provider: Shari Rodriguez Primary Care Provider: Josefina Nguyễn Home Meds and New Rx's Prescriptions: Continued Januvia 100 mg tablet 100 mg PO DAILY metformin 500 MG tablet 1,000 mg PO BID lisinopril 20 MG tablet 20 mg PO DAILY chlorthalidone 25 MG tablet 25 mg PO DAILY levothyroxine 50 MCG tablet 50 mcg PO DAILY glimepiride 1 MG tablet 2 mg PO DAILY albuterol sulfate [ProAir HFA] 90 mcg/actuation HFA aerosol inhaler 2 puff IH Q6H PRN atorvastatin 40 MG tablet 40 mg PO DAILY Caltrate-D3 Plus Minerals 300 mg-800 unit -25 mg-0.5 mg Tablet 1 tab PO DAILY Discontinued polyethylene glycol 3350 17 gram/dose powder 17 g PO DAILY Qty: 238 0RF bisacodyl [Dulcolax (bisacodyl)] 5 mg tablet,delayed release (DR/EC) 5 mg PO ONCE Qty: 4 0RF Discharge Instructions Additional Instructions: DSU Colonoscopy Post- Op Instructions Instructions for Everyone who is given Anesthesia: For your safety, please do the following for the next twenty-four (24) hours: *Do Not operate a motor vehicle (car, truck, motorcycle, etc.) *Do Not drink alcoholic beverages or use any recreational drugs for the first 24 hours or while taking pain medications. The medications in your body may have a reaction that can be dangerous. *Do Not make any important decisions or sign any important papers. Findings: External hemorrhoids Sigmoid diverticula Polyps Follow up: My office will send you a letter in 2 to 3 weeks time with the results of the pathology and when to repeat the colonoscopy 1. No lifting over 20 pounds or strenuous activity for the first 24 hours after your procedure. After 24 hours there are no restrictions on your activity but you may feel fatigued for a few days. 2. After you arrive home you may have a light meal and return to your normal diet as you can tolerate it without feeling sick to your stomach. 3. You may have a bloated, gaseous feeling in your belly (abdomen) after a colonoscopy. Passing gas and belching will help. Walking or lying down on your left side with your knees flexed may relieve the discomfort. Call the office at [phone] (Office) or [phone] (Hospital) right away if you notice any of the following: a.Vomiting of blood or ?coffee ground stools?. b.Rectal bleeding 1Tbsp, blood clots or continuous bleeding. c.Severe belly (abdominal) pain. d.A hard distended belly (abdomen) and an inability to pass gas. 4. Please don?t expect to have a normal BM (bowel movement) for 2-3 days after your procedure. 5. If there are questions regarding the findings of your procedure, please contact your doctor 6. If you are unable to contact your doctor with a problem, contact the hospital at [phone]. 7. Continue all your regular medications unless directed otherwise. I understand the above instructions and have no questions. Signature of Patient or Adult Escort Name of Responsible Adult Escort Signature of Nurse Date/Time Activity:: see above Diet:: see above Discharge Orders Discharge Orders: Discharge Order (Routine); Ordered 07/31/23 Ordered By: Shari Rordiguez DS: Diagnosis Discharge Diagnosis (1) Diverticulosis: Status: Acute (2) Sessile colonic polyp: (3) Obesity: (4) Smoker: (5) Hypertension: (6) Hyperlipidemia: (7) Goiter: (8) Hypothyroid: (9) Diabetes mellitus, type 2: (10) External hemorrhoids without complication: Status: Acute
--- NOTE | 2023-07-30 12:19 | W.COLOREPORT ---
Date of service: 07/31/23 Time of Service: 08:38 Colonoscopy Report Date of procedure: 07/31/23 Pre-op diagnosis general: History of sessile serrated in 2016 of rectum/diverticula Post-op diagnosis procedure note: other (Large external hemorrhoids/severe diverticula confined to the sigmoid colon/multiple polyps) Surgeon: Shari Rodriguez Anesthesia Type: General:No Airway Estimated blood loss (mL): 1 Pathology: other Complications: None Disposition: same day Prep: Miralax/Dulcolax Findings: 15 Procedure Description: After informed consent was obtained the patient was taken to the procedure room and placed in a left decubitous position. Monitors were applied and a time out was done. The patients name, date of , procedure, allergies to medications and metal in their body was reviewed. The patient was then sedated. Once sedated and comfortable a rectal exam was done. External exam shows large external hemorrhoids with no thrombosis. Internal exam revealed a normal sphincter tone and no palpable masses. The scope was then introduced and retrofelexed. No internal hemorrhoids were identified. The scope was then advanced to the cecum, requiring abdominal pressure.. The TI and appendiceal orifice were identified. The prep was BBPS 1 in the left colon, 3 in the transverse and 2 in the sigmoid. The scope was then slowly retracted over 15 minutes back into the rectum. She has severe diverticular disease confined to the sigmoid colon. There is no signs of active bleeding or infection. She has a .75cm flat polyp at 80 cm that is removed with a cold biting forcep. She has .5 cm flat polyps at 50 cm x2, that is removed with a cold biting forcep she has a flat 0.5 cm polyp at 20 cm that is removed with a cold biting forcep. All specimen is retrieved and no bleeding is noted. The scope was removed and the patient was woken up and taken back to Same day surgery in stable condition. The prep was poor and lesions less than 5 mm may have been missed. The patient tolerated the procedure well and there were no immediate complications. Follow up: The patient should follow up in 5 years, path pending, and provided she is still healthy for anesthesia. Unless they develop changes in bowel habits or other new gastrointestinal complaints.
[2023-07-31 06:19] VITALS: BP 148/83; PULSE 99; RESP 18; TEMP 36.7; O2SAT 96
[2023-07-31] MEDS: Lactated Ringers 1,000 ML 80 ML IV (06:50)
--- NOTE | 2023-07-31 07:04 | ANES.PREOP_ITS ---
General Info Date of Service Date Performed: 07/31/23 Height: 5 ft 4.5 in Weight: 77.7 kg Body Mass Index (BMI): 28.9 Surgical Procedure: Operation Date: 07/31/23 07:35 Proposed Procedure Side Surgeon endy Rodriguez, DO Meds Allergies and Home Medications Allergies Allergy/AdvReac Type Severity Reaction Status Date / Time No Known Drug Allergies Allergy Verified 07/31/23 06:16 Home Medication Medication Instructions Recorded chlorthalidone 25 mg tablet 25 mg PO DAILY 05/23/13 levothyroxine 50 mcg tablet 50 mcg PO DAILY 05/23/13 lisinopril 20 mg tablet 20 mg PO DAILY 05/23/13 metformin 500 mg tablet 1,000 mg PO BID 05/23/13 glimepiride 1 mg tablet 2 mg PO DAILY 07/02/15 atorvastatin 40 mg tablet 40 mg PO DAILY 03/16/17 sitagliptin phosphate 100 mg 100 mg PO DAILY 07/30/18 tablet (Januvia) albuterol sulfate 90 mcg/actuation 2 puff inhalation Q6H PRN 10/18/19 aerosol inhaler (ProAir HFA) calcium carb 300 mg-D3 20 mcg-mag 1 tab PO DAILY 01/19/20 ox 25 mg-information technology associate 0.5 [id number] tablet (Caltrate-D3 Plus Minerals) Current Visit Medications: Current Medications Generic Name Dose Route Start Last Admin Trade Name Freq PRN Reason Stop Dose Admin Hyoscyamine Sulfate 0.125 mg 07/31/23 11:12 Hyoscyamine 0.125 Mg Sl/Oral/Chew SL 08/30/23 11:11 DIRECTED PRN Ringer's Solution 1,000 mls @ 80 mls/hr 07/31/23 06:00 07/31/23 06:50 IV 08/29/23 23:59 80 mls/hr INFUSION JAYESH Administration IV Miscellaneous Supplies 1 each 07/31/23 06:00 Iv Access IV 08/29/23 23:59 DIRECTED JAYESH Ondansetron HCl 4 mg 07/31/23 11:12 Ondansetron 4 Mg/2 Ml Vial IVP 08/30/23 11:11 Q4H PRN PRN Nausea / Vomiting Sodium Chloride 0 ml 07/31/23 06:00 Normal Saline Flush 10 Ml Syr IV 08/29/23 23:59 PRN PRN Sodium Chloride 0 ml 07/31/23 06:00 Normal Saline 10 Ml Vial IJ 08/29/23 23:59 DIRECTED PRN Sterile Water 0 ml 07/31/23 06:00 Water,Injection,Sterile 10 Ml Vial IJ 08/29/23 23:59 DIRECTED PRN PFSH Active Problems Active Problems: Problem Status Onset Code Asymmetrical sensorineural hearing loss H90.3 Diverticulosis K57.90 Medical History Medical History Impairment of speech discrimination Sessile colonic polyp Sessile Serrated Adenoma, 01/23/20, Dr. Luci Springer, repeat 3 years Sessile colonic polyp Sessile Serrated Adenoma, 01/23/20, Dr. Luci Springer, repeat 3 years Colon polyp, hyperplastic 01/23/20 Dr. Luci Springer, x6, repeat 3 years Constipation Obesity Postmenopausal Tubular adenoma (01/28/16) 03/16/17 - Dr Springer - Tubular adenoma x 1 and sessile serrated adenoma x 4 - repeat in one year. 02/11/16 - Dr Springer - Tubular adenoma x 3 and tubulovillous adenoma x 1, repeat in one year. Smoker (07/22/16) Hypertension Hyperlipidemia Goiter Hypothyroid Diabetes mellitus, type 2 Cyst of thyroid Surgical History Surgical History H/O dilation and curettage excision seborrhoic keratosis L forarm (05/29/13) Tubal Ligation, Laparoscopic 1984 Thyroid R lobe removal cystic 2011 Colonoscopy - MAC (09/27/18) 09/27/18-Dr. Springer- 13 polyps 03/16/17 - Dr Springer - Tubular adenoma x 1 and sessile serrated adenoma x 4 - repeat in one year. 02/11/16 - Dr Springer - Tubular adenoma x 3 and tubulovillous adenoma x 1, repeat in one year. Tobacco Smoking/Tobacco Use Status: Current every day Tobacco Type: cigarettes Smoking cigarettes per day: 10 Alcohol Alcohol Intake: never Substance Use Substance use: Never Substance use type: does not use Prental History History 4 Para Hx # Term Pregnancies 3 Multiple births Hx # Pregnancies 1 Ectopic pregnancies AB induced Hx Number of Living Children 4 AB spontaneous Vital Signs and Lab Results Vital Signs Most Recent Vital Signs in EMR: Most Recent Vital Signs Temp Pulse Resp BP Pulse Ox 36.7 C 99 H 18 148/83 H 96 07/31/23 06:19 07/31/23 06:19 07/31/23 06:19 07/31/23 06:19 07/31/23 06:19 Point of Care Results Point of Care Results: Finger Stick Blood Glucose 298 07/31/23 06:37 Lab Results Blood Type / Crossmatch: No Data to Display Complete Blood Count: No Data to Display Complete Metabolic Panel: No Data to Display Liver Function Panel: No Data to Display Coagulation Panel: No Data to Display Cardiac Panel: No Data to Display Arterial Blood Gas: No Data to Display Venous Blood Gas: No Data to Display Pancreas Panel: No Data to Display Thyroid Panel: No Data to Display Infectious Disease: No Data to Display Blood Cultures: No Data to Display Toxicology Panel: No Data to Display Anesthesia Assessment and Plan Anesthesia History Personal History: No History of Anesthesia Complications Family History: No Family History of Anesthesia Complications Exercise Tolerance Exercise Tolerance: Metabolic Equivalents>4 Pertinent Negatives Pertinent Negatives: No Major Cardiovascular Symptoms or Complaints, No Major Pulmonary Symptoms or Complaints and No History of CVA/TIA Cardiac & Pulmonary Exam Cardiac Exam: Normal S1/S2 Heart Sounds Pulmonary Exam: Clear Bilateral Breath Sounds Implantable Cardiac Device Does patient have a Pacemaker or an ICD?: No Airway Exam Known Difficult Airway: No Mallampati Class: 3 Mouth Opening: Normal (> 3cm) Thyromental Distance: Greater than 3 cm Neck Range of Motion: Full ROM Neck Circumference: Normal Teeth Condition: Normal Dentition and Other (partials at home) ASA Classification ASA Score: ASA 2 Emergency Case?: No NPO Status NPO Status: NPO Clears >2 hours, Solids >8 hours Anesthesia Plan Resuscitation Status: Full Code Anesthesia Technique: General Anesthesia Airway Planned: Natural Airway Monitors Used: Standard Monitors Preoperative Comments:: Blood sugar 298, will resume metformin immediately following procedure.
[2023-07-31 07:10] VITALS: BMI 28.9
--- NOTE | 2023-07-31 08:09 | BOWEL_PTH ---
PATIENT: Tonia Magallanes LOC: [facility] U#:[id number] AGE/SX: 68/F ROOM: RE07/31/[address]: Shari Rodriguez : 1955 BED: DIS: 07/31/2023 SPEC #: [id number] RECD: 07/31/23 12:00 STATUS: MIGUELANGEL REQ #: [id number] DEBORAH: 07/31/23 08:[address]: Shari Rodriguez DEPT: Surgical Specimen RECD BY: Flora Diallo ENTERED: 07/31/23 12:02 SP TYPE: Bowel OTHR DR: Josefina Nguyễn Tissues: 1 - BIOPSY BOWEL 2 - BIOPSY BOWEL 3 - BIOPSY BOWEL Procedures: GROSS AND MICRO LEVEL 4 Comments: [id number]
[2023-07-31 08:28] VITALS: BP 112/53; PULSE 86; RESP 16; TEMP 36.4; O2SAT 95
[2023-07-31 08:58] VITALS: BP 123/45; PULSE 80; RESP 16; TEMP 36.8; O2SAT 96
--- NOTE | 2023-07-31 10:19 | W.ANESPOSTOP ---
Postoperative Evaluation Date, Time and Location Date Performed: 07/31/23 Time Performed: 09:01 Patient Location: Day Surgery Unit Vital Signs Most Recent Imported Vital Signs: Most Recent Vital Signs Temp Pulse Resp BP Pulse Ox 36.8 C 80 16 123/45 L 96 07/31/23 08:58 07/31/23 08:58 07/31/23 08:58 07/31/23 08:58 07/31/23 08:58 Pain Score Most Recent Pain Score: Most Recent Pain Score Pain Level 0 07/31/23 08:58 Assessment Mental Status: Awake (Alert & Oriented to Patient Baseline) Airway and Respiratory Function: Patent airway with normal (patient baseline) respiratory exam Cardiovascular Function: Hemodynamically Stable Hydration Status: Adequately Hydrated Nausea & Vomiting: No Nausea or Vomiting Pain: Pt. Denies Any Pain Peripheral Nerve Block: Patient did not receive a nerve block
== END 2023-07-31 09:30 | disposition home or self-care (01) ==
LOC: SUR 06:08
PROVIDERS: PCP Family Medicine; Visit Provider Surgery
PROC: 0DJD8ZZ Inspection of Lower Intestinal Tract, Via Natural or Artificial Opening Endoscopic (ICD-10-PCS; CPT 45378; principal; 2023-07-31 07:30)
DX: Z12.11 Encounter for screening for malignant neoplasm of colon (principal); Z86.010 Personal history of colon polyps; D12.4 Benign neoplasm of descending colon; K57.30 Diverticulosis of large intestine without perforation or abscess without bleeding; K64.4 Residual hemorrhoidal skin tags; E11.9 Type 2 diabetes mellitus without complications; E66.9 Obesity, unspecified; I10 Essential (primary) hypertension; F17.200 Nicotine dependence, unspecified, uncomplicated; D12.5 Benign neoplasm of sigmoid colon
CPT/HCPCS: 45380; 88305

== ENCOUNTER 2023-10-12 09:52 | Outpatient (REF) | payer MEDICARE, SELFPAY ==
[2023-10-12 15:23] LABS: Hemoglobin A1C 12.5 % (<5.7)
[2023-10-12 15:46] LABS: ALT 52 U/L (14-59); AST 18 U/L (15-37); Albumin 4.2 g/dL (3.4-5.0); Alkaline Phosphatase 134 U/L (46-116); Anion Gap 11.5 mmol/L (3-11); BUN 21 mg/dL (7-18); Bilirubin, Total 0.5 mg/dL (0.2-1.0); CO2 27.5 mmol/L (21.0-32.0); CREATININE 1.1 mg/dL (0.55-1.02); Calcium 10.2 mg/dL (8.5-10.1); Calculated LDL 73 mg/dL (<100); Chloride 103 mmol/L (98-107); Cholesterol 159 mg/dL (<200); Estimated GFR 54.06 (mL/min/1.73m2); Glucose 348 mg/dL (74-106); HDL Cholesterol 40 mg/dL (40-60); Potassium 4.7 mmol/L (3.5-5.1); Sodium 142 mmol/L (136-145); TSH (W/Ref FT4) 1.77 uIU/mL (0.36-3.74); Triglyceride 231 mg/dL (<150)
[2023-10-12 15:54] LABS: Vitamin D 25 Total 87.6 ng/mL (30-100)
[2023-10-12 15:58] LABS: Total Protein 7.1 g/dL (6.4-8.2)
== END 2023-10-12 09:53 | disposition home or self-care (01) ==
LOC: NCHCN 09:52
PROVIDERS: PCP Family Medicine; Referring Provider Family Medicine; Visit Provider Family Medicine
DX: E03.9 Hypothyroidism, unspecified (principal); E11.9 Type 2 diabetes mellitus without complications; E78.5 Hyperlipidemia, unspecified; I10 Essential (primary) hypertension; M85.88 Other specified disorders of bone density and structure, other site
CPT/HCPCS: 80053; 80061; 82306; 83036; 84443

== ENCOUNTER 2024-11-07 13:36 | Outpatient (REF) | payer MEDICARE, SELFPAY ==
[2024-11-07 15:56] LABS: COMMENT (LAB VIEW ONLY) 28.41 mg/dL; Microalb ug/mg Crea 32.7 ug/mg Cr
== END 2024-11-07 13:37 | disposition home or self-care (01) ==
LOC: NCHCN 13:36
PROVIDERS: PCP Family Medicine; Visit Provider Family Medicine
DX: I10 Essential (primary) hypertension (principal)
CPT/HCPCS: 82043; 82570

== ENCOUNTER 2025-02-21 01:37 | Outpatient (CLI) | payer MEDICARE, SELFPAY ==
--- NOTE | 2025-02-21 | DI.MAMMO_ITS ---
Exam(s) MAMMO SCREENING EXAM: MAMMO SCREENING CLINICAL HISTORY: SCREENING, Z12.31 TECHNIQUE: Mammograms were interpreted according to the usual protocol including computer analysis with CAD system, tomosynthesis and C-view imaging. COMPARISON: 2014 through 2022 FINDINGS: The breasts are composed of heterogeneously dense fibroglandular densities, Breast Density category C. No suspicious masses or suspicious microcalcifications are seen. Multiple coarse, benign-appearing calcifications are again noted bilaterally. Stable areas of nodularity. No skin thickening or abnormal axillary lymph nodes are seen. There has been no significant change from prior exams. IMPRESSION: BI-RADS Category 1, Negative mammogram. Yearly screening mammography is recommended. Breast Density: Category C - The breasts are heterogeneously dense, which may obscure small masses. Breast density Category C or D implies that the patient has dense breast tissue. Dense breast tissue can make it harder to find cancer on a mammogram. Dense breast tissue is also associated with an increased risk of breast cancer. This information about the result of the mammogram report was provided to the patient to raise their awareness. Use this report when you speak with the patient about their risks for breast cancer, which includes their family history. At that time, you may recommend additional screening tests (Ultrasound or MRI) as these tests may add significant information. A negative radiographic report should not delay biopsy if a dominant or clinically suspicious mass is present. Up to ten percent of cancers are not identified on mammography. A negative report may reinforce clinical impression. Adenosis and dense breasts may obscure an underlying neoplasm. False positive reports average 6 to 10%.
== END 2025-02-21 01:57 ==
PROVIDERS: PCP Family Medicine; Visit Provider Family Medicine
DX: Z12.31 Encounter for screening mammogram for malignant neoplasm of breast (principal); R92.333 Mammographic heterogeneous density, bilateral breasts
CPT/HCPCS: 77063; 77067

== ENCOUNTER 2025-08-04 14:52 | Outpatient (REF) | payer MEDICARE, SELFPAY ==
[2025-08-04 21:31] LABS: HCT 26.1 % (36.0-46.0); HGB 7.2 g/dL (11.2-15.7); MCH 19.5 pg (27.0-33.0); Platelet Count 258 10^3/uL (130-400); RBC 3.70 10^6/uL (3.93-5.22); RDW 18.6 % (11.7-14.6); RDW-SD 45.5 fL; WBC 8.19 10^3/uL (4.4-10.8)
[2025-08-04 21:44] LABS: ALT 34 U/L (10-49); AST 24 U/L (<34); Albumin 4.4 g/dL (3.2-5.0); Alkaline Phosphatase 92 U/L (46-116); Anion Gap 10.6 mmol/L (3-11); BUN 18 mg/dL (9-23); Bilirubin, Total 0.4 mg/dL (0.2-1.2); CO2 27.4 mmol/L (20.0-31.0); Calcium 9.8 mg/dL (8.3-10.6); Chloride 106 mmol/L (98-107); Cholesterol 97 mg/dL (<200); Glucose 164 mg/dL (74-106); HDL Cholesterol 32 mg/dL (>40); Potassium 3.7 mmol/L (3.5-5.1); Sodium 144 mmol/L (136-145); Total Protein 6.6 g/dL (5.7-8.2)
[2025-08-04 21:46] LABS: TSH (W/Ref FT4) 0.29 uIU/mL (0.55-4.78)
[2025-08-04 22:15] LABS: MCHC 27.6 % (32.0-36.0); MCV 71 fL (80-95)
== END 2025-08-04 14:53 | disposition home or self-care (01) ==
LOC: NCHCN 14:52
PROVIDERS: PCP Family Medicine; Visit Provider Nurse Practitioner Family
DX: E78.5 Hyperlipidemia, unspecified (principal); E11.9 Type 2 diabetes mellitus without complications; E03.9 Hypothyroidism, unspecified
CPT/HCPCS: 80053; 80061; 85027; 84439; 84443

== ENCOUNTER 2025-08-11 17:09 | Emergency (ER) | payer MEDICARE, SELFPAY ==
[2025-08-11 17:17] VITALS: BP 168/76; PULSE 108; RESP 20; TEMP 36.5; O2SAT 98
[2025-08-11 17:46] LABS: Abs Immature Grans 0.05 10^3/uL (0.0-0.06); HCT 27.5 % (36.0-46.0); HGB 7.5 g/dL (11.2-15.7); Immature Grans % 0.4 %; MCH 19.0 pg (27.0-33.0); MCHC 27.3 % (32.0-36.0); MCV 70 fL (80-95); MPV 11.0 fL (8.0-11.0); RBC 3.94 10^6/uL (3.93-5.22); RDW 18.6 % (11.7-14.6); RDW-SD 45.2 fL; WBC 11.34 10^3/uL (4.4-10.8)
[2025-08-11 17:59] LABS: Basophilic Stippling Present; Platelet Count 440 10^3/uL (130-400)
[2025-08-11 18:00] LABS: Hypochromasia 2+; Microcytosis 2+; Polychromasia Present
[2025-08-11 18:02] LABS: INR 1.0 (0.9-1.1); PTT Activated 22.9 sec (20.6-30.2); Prothrombin Time 9.7 sec (9.1-11.1)
[2025-08-11 18:05] LABS: Lipase 74 U/L (<53)
[2025-08-11 18:07] LABS: ALT 35 U/L (10-49); AST 24 U/L (<34); Albumin 4.7 g/dL (3.2-5.0); Alkaline Phosphatase 94 U/L (46-116); Anion Gap 12.6 mmol/L (3-11); BUN 22 mg/dL (9-23); Bilirubin, Total 0.5 mg/dL (0.2-1.2); CO2 25.4 mmol/L (20.0-31.0); Calcium 10.2 mg/dL (8.3-10.6); Chloride 103 mmol/L (98-107); Glucose 196 mg/dL (74-106); Potassium 3.7 mmol/L (3.5-5.1); Sodium 141 mmol/L (136-145); Total Protein 7.4 g/dL (5.7-8.2)
[2025-08-11 18:09] LABS: Ferritin 3 ng/mL (7-271)
[2025-08-11 18:28] LABS: Iron 11 ug/dL (50-170); Total Iron Binding Capacity 471 ug/dL (250-425); Transferrin Sat 2 % (15-50)
[2025-08-11 19:09] VITALS: BP 158/65; PULSE 101; RESP 18; TEMP 36.6; O2SAT 97
[2025-08-11 19:24] VITALS: BP 129/50; PULSE 89; RESP 18; TEMP 36.5; O2SAT 97
[2025-08-11 19:54] VITALS: BP 108/40; PULSE 80; RESP 18; TEMP 36.4; O2SAT 98
--- NOTE | 2025-08-11 20:45 | W.ED.GENAD ---
Discharge Plan Disposition Patient Disposition: Home Condition: Stable Discharge Details Clinical Impression: Anemia Primary Care Provider: Josefina Nguyễn ED Provider: Vineet Garg Home Meds and New Rx's Prescriptions: Continued aspirin [Adult Low Dose Aspirin] 81 mg tablet,delayed release (DR/EC) 81 mg PO DAILY Ozempic 1 mg/dose (4 mg/3 mL) pen injector 1 mg subcut QWEEK metformin 500 MG tablet 1,000 mg PO BID lisinopril 20 MG tablet 20 mg PO DAILY chlorthalidone 25 MG tablet 25 mg PO DAILY levothyroxine 50 MCG tablet 50 mcg PO DAILY albuterol sulfate [ProAir HFA] 90 mcg/actuation HFA aerosol inhaler 2 puff IH Q6H PRN atorvastatin 40 MG tablet 40 mg PO DAILY Caltrate-D3 Plus Minerals 300 mg-800 unit -25 mg-0.5 mg Tablet 1 tab PO DAILY Discharge Instructions Instructions: Anemia caused by low iron Additional Instructions: You were seen in the emergency department for your profound anemia, this is a new onset condition for you and we did provide you with some blood via transfusion. It is possible you have a GI bleed but also it appears to be related to iron intake, please take an naic-pab-aldocsu vitamin that contains some iron, I have placed you on the general surgery follow-up list but you should talk to your primary care provider first about treating your iron deficiency before getting elective EGD/colonoscopy, please return for any profound weakness, feelings of near fainting or any other emergent concerns Stand Alone Forms: Portal Information Referrals: [facility] [Provider Group] Josefina Nguyễn [Primary Care Provider, Medicine] Discharge Data Discharge Date/Time-TO BE ENTERED AT DEPARTURE: 08/11/25 20:49 HPI General Date/Time Provider Initiated Documentation: 08/11/25 17:24. HPI Narrative: 70 year-old female presents to ED today by POV/ambulating with a chief complaint of outpatient lab draw showing new onset anemia with onset last week. Quality described as has been feeling fatigued lately, no radiation to black/bloody stools, near syncope, fever, cough, shortness of breath, chest pain. Severity is described as mild. Palliating factors include nothing specific attempted. Provoking factors include nothing specific. Events leading up to the incident/Associated Symptoms: PCP practice recommended transfusion. Patient not anticoagulated. Related Data Home Medications ?Medication ?Instructions ?Recorded ?Confirmed chlorthalidone 25 mg tablet 25 mg PO DAILY 05/23/13 08/11/25 levothyroxine 50 mcg tablet 50 mcg PO DAILY 05/23/13 08/11/25 lisinopril 20 mg tablet 20 mg PO DAILY 05/23/13 08/11/25 metformin 500 mg tablet 1,000 mg PO BID 05/23/13 08/11/25 atorvastatin 40 mg tablet 40 mg PO DAILY 03/16/17 08/11/25 albuterol sulfate 90 mcg/actuation 2 puff inhalation Q6H PRN 10/18/19 08/11/25 aerosol inhaler (ProAir HFA) calcium 300 mg-D3 20 mcg-magnesium 1 tab PO DAILY 01/19/20 08/11/25 25 mg-coppr 0.5 kg-bisw-yida tablet (Caltrate-D3 Plus Minerals) aspirin 81 mg tablet,delayed 81 mg PO DAILY 08/10/25 08/11/25 release (Adult Low Dose Aspirin) semaglutide 1 mg/dose (4 mg/3 mL) 1 mg subcut QWEEK 08/10/25 08/11/25 subcutaneous pen injector (Ozempic) Allergies Allergy/AdvReac Type Severity Reaction Status Date / Time No Known Drug Allergies Allergy Other (See Verified 08/11/25 17:19 Comment) General Stated Complaint: GenMedical LUBNA: 3 Review of Systems All systems reviewed & are unremarkable except as noted in HPI and below Exam Narrative Exam Narrative: GENERAL APPEARANCE: Well-nourished, non-toxic, awake and alert, atraumatic, no acute distress. SKIN: Warm, pale, dry, intact, without rashes/lesions/ulcerations. HEAD: Normocephalic, atraumatic, normal hair distribution for gender/age. EYES: Pale conjunctiva, no exudates on lids/lashes. ENT: Nares patent, no circumoral cyanosis, no facial swelling NECK: Supple, trachea midline, painless cervical ROM. LUNGS/CHEST: Lungs CTA bilaterally-no rhonchi/rales/wheezes diffusely, non-labored respirations, normal A/P diameter, symmetrical expansion, no chest wall deformity HEART (CV/PV): Regular rate and rhythm without murmur, no peripheral edema, no JVD. ABDOMEN: Soft, non-distended, no guarding, no tenderness. MSK: Normal ROM, no swelling/deformity to bilateral UEs or LEs, moving all extremities without weakness, no cyanosis, spine midline without tenderness, normal curvature. NEURO: Mental Status AAOx4 - alert to person, place, time, events No facial droop, no forehead involvement. Motor: No focal weakness - strength 5/5 in bilateral UEs and LEs, proximal and distal, symmetric. Sensory: sensation intact to light touch globally. Gait normal: patient ambulated without ataxia into ED room. PSYCH: euthymic, cooperative, pleasant, appropriate speech Course Vital Signs Vital signs: Vital Signs Temperature 36.5 C 08/11/25 17:17 Pulse 108 H 08/11/25 17:17 Respiratory Rate 20 08/11/25 17:17 Blood Pressure 168/76 H 08/11/25 17:17 Pulse Oximetry 98 08/11/25 17:17 Temperature 36.4 C L 08/11/25 19:54 Temperature Source Oral 08/11/25 17:17 Pulse 80 08/11/25 19:54 Respiratory Rate 18 08/11/25 19:54 Blood Pressure 108/40 L 08/11/25 19:54 Blood Pressure Position Sitting 08/11/25 17:17 Pulse Oximetry 98 08/11/25 19:54 Oxygen Delivery Method Room Air 08/11/25 19:54 Oxygen Flow Rate 0 08/11/25 19:54 Pain Level 0 08/11/25 17:17 Lab/Test Results Lab/Test Results: Laboratory Tests Range/Units 08/11/25 17:35 WBC (4.4-10.8) 10^3/uL 11.34 H RBC (3.93-5.22) 10^6/uL 3.94 Hgb (11.2-15.7) g/dL 7.5 L Hct (36.0-46.0) % 27.5 L MCV (80-95) fL 70 L MCH (27.0-33.0) pg 19.0 L MCHC (32.0-36.0) % 27.3 L RDW (11.7-14.6) % 18.6 H Plt Count (130-400) 10^3/uL 440 H MPV (8.0-11.0) fL 11.0 Immature Gran % % 0.4 Neutrophils % % 64.3 Lymphocytes % % 25.4 Monocytes % % 6.9 Eosinophils % % 2.0 Basophils % % 1.0 Nucleated RBC % (0.0-0.3) % 0.3 Absolute Neutrophils (1.2-6.7) 10^3/uL 7.29 H Absolute Lymphocytes (1.2-3.4) 10^3/uL 2.88 Absolute Monocytes (0.1-0.8) 10^3/uL 0.78 Absolute Eosinophils (0.0-0.7) 10^3/uL 0.23 Absolute Basophils (0.0-0.2) 10^3/uL 0.11 RBC Morphology See Below Polychromasia Present Hypochromasia 2+ Basophilic Stippling Present Microcytosis 2+ PT (9.1-11.1) sec 9.7 INR (0.9-1.1) 1.0 APTT (20.6-30.2) sec 22.9 VBG Lactate (<or=2.0) mmol/L 3.5 H* Sodium (136-145) mmol/L 141 Potassium (3.5-5.1) mmol/L 3.7 Chloride (98-107) mmol/L 103 Carbon Dioxide (20.0-31.0) mmol/L 25.4 Anion Gap (3-11) mmol/L 12.6 H BUN (9-23) mg/dL 22 Creatinine (0.55-1.02) mg/dL 0.86 Est GFR (CKD-EPI 2020) (mL/min/1.73m2) 64.79 Glucose (74-106) mg/dL 196 H Calcium (8.3-10.6) mg/dL 10.2 Iron (50-170) ug/dL 11 L TIBC (250-425) ug/dL 471 H Transferrin % Sat (15-50) % 2 L Ferritin (7-271) ng/mL 3 L Total Bilirubin (0.2-1.2) mg/dL 0.5 AST (<34) U/L 24 ALT (10-49) U/L 35 Alkaline Phosphatase (46-116) U/L 94 Total Protein (5.7-8.2) g/dL 7.4 Albumin (3.2-5.0) g/dL 4.7 Lipase (<53) U/L 74 H ABO/Rh O Negative Antibody Screen NEGATIVE Crossmatch See Detail Medical Decision Making This dictation utilizes [id number] dictation software and may contain unedited grammatical errors. 70 year-old female presents to ED today by POV/ambulating with a chief complaint of outpatient lab draw showing new onset anemia with onset last week. Quality described as has been feeling fatigued lately, no radiation to black/bloody stools, near syncope, fever, cough, shortness of breath, chest pain. Severity is described as mild. Palliating factors include nothing specific attempted. Provoking factors include nothing specific. Events leading up to the incident/Associated Symptoms: PCP practice recommended transfusion. Patients' medical history: Hypertension, hyperlipidemia, T2DM, polyp of colon, diverticulosis. Family and social history: Noncontributory. Pertinent exam findings / vital signs include benign abdomen, benign cardiopulmonary exam, nontoxic and afebrile, neuro intact. Differential / pathologies of concern include anemia, iron deficiency, blood dyscrasia, GI bleeding. Diagnostic studies of: - CBC, CMP, PT/PTT, lactate, lipase, type and screen, iron studies. - CBC shows a stable anemia from lab draw last week, shows hemoconcentration - Coagulation studies benign - Lactate is elevated at 3.5, unclear etiology, there is no syndrome of infection likely mild dehydration - Lipase mildly elevated at 74 - Low iron, high TIBC, low ferritin indicating likely iron deficiency anemia as source Interventions of: - 1 unit of packed red blood cells. ED Course/Assessment/Plan: 70-year-old female presents with outpatient lab draw showing anemia last week, it is stable in the sevens, I did provide the patient with 1 unit of packed red blood cells to account for her mild fatigue, counseled on the need to follow-up with her primary care provider and hematology, to take a multivitamin containing iron and watch for signs of constipation in the meantime, strict return criteria for any worsening fatigue, black or bloody stools fevers or any other signs of infection or emergent concerns. Patient had mildly elevated lipase as well as elevated lactate and hemoconcentration on CBC. Findings not consistent with active bleeding, sepsis, peritoneal abdomen, respiratory distress. Disposition of anemia. Patient verbalized understanding of the plan and return to ED criteria and engaged in shared decision making. Medical Records Medical records reviewed: Yes I reviewed the patient's medical records. Lab Data Lab results reviewed: Yes I reviewed the patient's lab results. Labs: Laboratory Tests Range/Units 08/11/25 17:35 WBC (4.4-10.8) 10^3/uL 11.34 H RBC (3.93-5.22) 10^6/uL 3.94 Hgb (11.2-15.7) g/dL 7.5 L Hct (36.0-46.0) % 27.5 L MCV (80-95) fL 70 L MCH (27.0-33.0) pg 19.0 L MCHC (32.0-36.0) % 27.3 L RDW (11.7-14.6) % 18.6 H Plt Count (130-400) 10^3/uL 440 H MPV (8.0-11.0) fL 11.0 Immature Gran % % 0.4 Neutrophils % % 64.3 Lymphocytes % % 25.4 Monocytes % % 6.9 Eosinophils % % 2.0 Basophils % % 1.0 Nucleated RBC % (0.0-0.3) % 0.3 Absolute Neutrophils (1.2-6.7) 10^3/uL 7.29 H Absolute Lymphocytes (1.2-3.4) 10^3/uL 2.88 Absolute Monocytes (0.1-0.8) 10^3/uL 0.78 Absolute Eosinophils (0.0-0.7) 10^3/uL 0.23 Absolute Basophils (0.0-0.2) 10^3/uL 0.11 RBC Morphology See Below Polychromasia Present Hypochromasia 2+ Basophilic Stippling Present Microcytosis 2+ PT (9.1-11.1) sec 9.7 INR (0.9-1.1) 1.0 APTT (20.6-30.2) sec 22.9 VBG Lactate (<or=2.0) mmol/L 3.5 H* Sodium (136-145) mmol/L 141 Potassium (3.5-5.1) mmol/L 3.7 Chloride (98-107) mmol/L 103 Carbon Dioxide (20.0-31.0) mmol/L 25.4 Anion Gap (3-11) mmol/L 12.6 H BUN (9-23) mg/dL 22 Creatinine (0.55-1.02) mg/dL 0.86 Est GFR (CKD-EPI 2020) (mL/min/1.73m2) 64.79 Glucose (74-106) mg/dL 196 H Calcium (8.3-10.6) mg/dL 10.2 Iron (50-170) ug/dL 11 L TIBC (250-425) ug/dL 471 H Transferrin % Sat (15-50) % 2 L Ferritin (7-271) ng/mL 3 L Total Bilirubin (0.2-1.2) mg/dL 0.5 AST (<34) U/L 24 ALT (10-49) U/L 35 Alkaline Phosphatase (46-116) U/L 94 Total Protein (5.7-8.2) g/dL 7.4 Albumin (3.2-5.0) g/dL 4.7 Lipase (<53) U/L 74 H ABO/Rh O Negative Antibody Screen NEGATIVE Crossmatch See Detail PFSH All Active Problems (Updated 08/11/25 @ 20:48 by VIJAY Mendez) Anemia (Chronic) Sensorineural hearing loss, bilateral (Acute) Tubular adenoma (Acute 07/31/23) 08/15 tubular adenoma 03/16/17 - Dr Springer - Tubular adenoma x 1 and sessile serrated adenoma x 4 - repeat in one year. 02/11/16 - Dr Springer - Tubular adenoma x 3 and tubulovillous adenoma x 1, repeat in one year. External hemorrhoids without complication (Acute) Asymmetrical sensorineural hearing loss (Acute) Diverticulosis (Acute) Medical History Impairment of speech discrimination Sessile colonic polyp Sessile Serrated Adenoma, 01/23/20, Dr. Luci Springer, repeat 3 years Sessile colonic polyp Sessile Serrated Adenoma, 01/23/20, Dr. Luci Springer, repeat 3 years Colon polyp, hyperplastic 01/23/20 Dr. Luci Springer, x6, repeat 3 years Constipation Obesity Postmenopausal Smoker (07/22/16) Hypertension Hyperlipidemia Goiter Hypothyroid Diabetes mellitus, type 2 Cyst of thyroid Surgical History H/O dilation and curettage excision seborrhoic keratosis L forarm (05/29/13) Tubal Ligation, Laparoscopic 1984 Thyroid R lobe removal cystic 2011 Colonoscopy - MAC (07/2023) 09/27/18-Dr. Springer- 13 polyps 03/16/17 - Dr Springer - Tubular adenoma x 1 and sessile serrated adenoma x 4 - repeat in one year. 02/11/16 - Dr Springer - Tubular adenoma x 3 and tubulovillous adenoma x 1, repeat in one year. Family History Mother Diabetes Father Diabetes Heart disease Hyperlipidemia Sister Diabetes Heart disease Social History Smoking/Tobacco Use Status: Current every day Tobacco Type: cigarettes Smoking risk assessment performed?: Yes Alcohol Intake: never Drug use: Never Substance use type: does not use Housing: house Current gender identity: female What is your relationship status?: Panel score (0-1 are the most socially isolated patients): 0 Do you feel safe at home: Yes Additional Social history: past away 11/13; 2 sons live with her Female Reproductive History Menstrual Menopause type: natural Date of menopause: 11/23/07 History History 4 Para Hx # Term Pregnancies 3 Multiple births Hx # Pregnancies 1 Ectopic pregnancies AB induced Hx Number of Living Children 4 AB spontaneous
[2025-08-11 20:54] VITALS: BP 138/62; PULSE 80; RESP 18; TEMP 36.1; O2SAT 95
[2025-08-11 21:39] VITALS: BP 152/62; PULSE 87; RESP 18; TEMP 35.2; O2SAT 96
== END 2025-08-11 20:49 | disposition home or self-care (01) ==
PROVIDERS: Emergency Provider Physician Assistant; PCP Family Medicine
DX: D64.9 Anemia, unspecified (principal)
CPT/HCPCS: 99284; 99285; 36430; 36415; 80053; 83690; 86850; 86900; 86901; 86920; 82728; 83540; 83550; 83605; 85025; 85610; 85730; P9016